=== PATIENT | female | born 1930 | race Caucasian/White ===

== ENCOUNTER 2016-10-10 15:24 | Emergency (ER) | payer MEDICARE, OTHER ==
[~2016-10-10] VITALS: Ht 157.5 cm; Wt 59.0 kg
[2016-10-10] MEDS ORDERED: ASPI81CH PO (15:38)
[2016-10-10] MEDS ORDERED: ATOR40TA (15:38)
[2016-10-10] MEDS ORDERED: NITR0.4S14 SL (15:39)
[2016-10-10] MEDS ORDERED: METO50TA2 (15:39)
[2016-10-10] MEDS ORDERED: TYLE325C PO (16:37)
[2016-10-10 16:44] VITALS: BP 161/72
[2016-10-10] MEDS ORDERED: ACETAMINOPHEN 325 MG TAB PO ONE (16:45)
--- NOTE | 2016-10-11 06:27 | REP ---
BILATERAL KNEES: HISTORY: Injury. LEFT KNEE, FIVE VIEWS: There is no acute fracture or dislocation. There is narrowing of the joint spaces. Chondrocalcinosis is present. IMPRESSION: Degenerative change as described above. RIGHT KNEE, FIVE VIEWS: There is no acute fracture or dislocation. There is narrowing of the joint spaces. An osteophyte is present on the patella. Chondrocalcinosis is present. IMPRESSION: Degenerative change as described above. Signed by Dexter Richard MD 10/11/2016 08:24 A
--- NOTE | 2016-10-11 06:28 | REP ---
BILATERAL TIBIA: HISTORY: Injury. RIGHT TIBIA, TWO VIEWS: There is no acute fracture or dislocation. There is narrowing of the knee joint space. IMPRESSION: Degenerative change as described above. LEFT TIBIA, TWO VIEWS: There is no acute fracture or dislocation. There is narrowing of the knee joint space. IMPRESSION: There is no acute fracture or dislocation. Signed by Dexter Richard MD 10/11/2016 08:26 A
== END 2016-10-10 16:57 | disposition home or self-care (01) ==
LOC: M ED 16:05
DX: M25.561 Pain in right knee (principal); M25.562 Pain in left knee; Z91.81 History of falling; I25.10 Atherosclerotic heart disease of native coronary artery without angina pectoris; I10 Essential (primary) hypertension; E78.9 Disorder of lipoprotein metabolism, unspecified; Z79.899 Other long term (current) drug therapy; Z79.82 Long term (current) use of aspirin

== ENCOUNTER 2016-10-25 18:11 | Inpatient (IN) | payer MEDICARE, OTHER ==
[~2016-10-25] VITALS: Ht 154.9 cm; Wt 64.1 kg
[~2016-10-25 18:11] MED LIST: ASPI81CH PO; ATOR40TA75 PO; METO50TA7 PO; NITR0.4S14 SL; TYLE325C PO
[2016-10-25] MEDS ORDERED: NS 500 ML IV ONE (19:00)
[2016-10-25] MEDS ORDERED: NITROGLYCERIN 2% OINT 1 GM *U/D* PKT TOP ONE (19:15)
[2016-10-25 19:21] LABS: BASO % 0.3 % (0.0-1.0); EOS % 0.2 % (0.0-3.0); LARGE UNSTAINED CELL # 0.2 K/mm3 (0.0-0.4); LARGE UNSTAINED CELL % 1.5 % (0.0-4.0); LYMPH # 2.2 K/mm3 (1.5-4.5); MEAN CORPUSCULAR HEMOGLOBIN 31.4 pg (27.0-33.0); MEAN CORPUSCULAR VOLUME 92.2 fl (80.0-96.0); MONO # 1.3 K/mm3 (0.0-0.8); MONO % 8.6 % (0.0-5.0); NEUTROPHILS # 11.7 K/mm3 (1.8-7.7); NEUTROPHILS % 75.4 % (36.0-66.0); PLATELET COUNT, AUTOMATED 191 k/mm3 (150-450); RED CELL DISTRIBUTION WIDTH 12.2 % (11.5-14.5); WHITE BLOOD COUNT 15.5 K/mm3 (4.0-10.0)
[2016-10-25 19:25] LABS: OSMOLALITY SERUM 288 MOSM/KG (280-301)
--- NOTE | 2016-10-25 19:30 | REPUSA ---
CT of the cervical spine Clinical history: fall. Technique: Multiple axial CT images were obtained through the cervical spine without administration o f contrast. Coronal and sagittal 3-D reconstructed images were also obtained. Comparison: None. Findings: The cervical vertebral bodies are in satisfactory positioning and alignment. No fractures or dislocat ions are demonstrated. The odontoid process is intact. There is moderate degenerative disc disease at C3/C4. Intervertebral disc spaces are otherwise well-maintained. There is no evidence of facet subl uxation. The neural foramen appear grossly patent. The cervical cranial junction is intact. The cervi neal spinal canal demonstrates normal caliber and contour without evidence of spinal stenosis. The sandhya rounding soft tissues are within normal limits. Impression: No acute fracture or traumatic injury. Moderate degenerative disc disease at C3/C4.
[2016-10-25 19:42] LABS: ALBUMIN 3.8 GM/DL (3.2-5.2); ALBUMIN/GLOBULIN RATIO 1.09 (1.00-1.93); ALKALINE PHOSPHATASE 72 U/L (45-117); ALT/SGPT 25 U/L (12-78); ANION GAP 10 MEQ/L (8-16); AST/SGOT 30 U/L (15-37); BILIRUBIN,DIRECT 0.2 MG/DL (0.0-0.2); BILIRUBIN,TOTAL 1.1 MG/DL (0.2-1.0); BLOOD UREA NITROGEN 17 MG/DL (7-18); CALCIUM LEVEL 9.2 MG/DL (8.8-10.2); CARBON DIOXIDE LEVEL 24 MEQ/L (21-32); CHLORIDE LEVEL 104 MEQ/L (98-107); CREATININE FOR GFR 0.96 MG/DL (0.55-1.02); GLOMERULAR FILTRATION RATE 58.8 (>32); GLUCOSE, FASTING 119 MG/DL (83-110); POTASSIUM SERUM 4.2 MEQ/L (3.5-5.1); SODIUM LEVEL 138 MEQ/L (136-145); TOTAL PROTEIN 7.3 GM/DL (6.4-8.2)
--- NOTE | 2016-10-25 19:47 | REP ---
CHEST: AP view of the chest is performed. There appears to be mild bibasilar fibro atelectatic change. There is mild cardiomegaly. There is calcification and tortuosity of the thoracic aorta. IMPRESSION: Chronic changes. No acute pulmonary disease. Signed by Constantino Heart MD 10/25/2016 08:24 P
[2016-10-25 20:38] LABS: METHADONE URINE NEGATIVE (NEGATIVE)
[2016-10-25 20:49] LABS: VENOUS BASE EXCESS -1.2 (-2.0-2.0); VENOUS O2 SATURATION 98.6 % (60.0-80.0); VENOUS PARTIAL PRESSURE CO2 31.8 mmHg (38.0-50.0); VENOUS PARTIAL PRESSURE O2 112.7 mmHg (30.0-50.0); VENOUS STANDARD HCO3 23.5 MEQ/L; VENOUS TOTAL CO2 22.8 MEQ/L (24.0-28.0)
[2016-10-25] MEDS ORDERED: NS 1,000 ML IV ONE (21:00)
[2016-10-25] MEDS ORDERED: PIPERACILLIN/TAZOBACTAM SOD 3.375 GM in D5W MINI-BAG PLUS 50 ML IV ONE (21:00)
[2016-10-25] MEDS ORDERED: ONDANSETRON 4MG/2ML VIAL (J2405) IV ONE (21:00)
[2016-10-25] MEDS ORDERED: ISOVUE-370 76% 100ML VIAL (Q9967) As Ordered ONE (21:27)
--- NOTE | 2016-10-25 22:10 | REPUSA ---
CT of the abdomen and pelvis with contrast Clinical statement: vomiting. Technique: Multiple axial CT images were obtained from the base of the lungs through the floor of the pelvis utilizing 5 mm axial slices after administration of nonionic intravenous contrast. Coronal an d sagittal reconstructions were also obtained. Comparison: None. Findings: Chest: The visualized lung bases demonstrate mild interstitial changes bilaterally. Abdomen: The liver, pancreas, kidneys, and adrenal glands are unremarkable. There is a large simple c yst in the anterior right kidney. There is a wedge shaped area of low attenuation within the spleen. The gallbladder significantly distended. The aorta demonstrates mild atherosclerotic calcifications, without evidence of aneurysm or dissection. There is no evidence of abdominal lymphadenopathy or asc ites. Pelvis: The bowel is unremarkable, with no obstructive or inflammatory changes. The urinary bladder i s catheterized, but within normal limits. The other pelvic structures appear grossly intact. There i s no evidence of pelvic lymphadenopathy or ascites. Bones: There are no suspicious osseous abnormalities seen. Moderate multilevel degenerative disc dise ase is noted throughout the lumbar spine. Impression: 1. No obstructive or inflammatory bowel changes. 2. Mild interstitial changes in the lung bases bilaterally. 3. Large simple right renal cyst. 4. Distended gallbladder. 5. Moderate atherosclerosis of the abdominal aorta without evidence of aneurysm or dissection. 6. Moderate spondylosis of the lumbar spine.
[2016-10-25 23:07] LABS: ABG BASE EXCESS -4.1 (-2.0-2.0); ABG PARTIAL PRESSURE CO2 33.8 mmHg (35.0-45.0); ABG PARTIAL PRESSURE O2 73.7 mmHg (75.0-100.0); ABG TOTAL CO2 21.1 MEQ/L (23.0-31.0); ABG pH (ARTERIAL) 7.391 UNITS (7.350-7.450)
[2016-10-25] MEDS: NS 1,000 ML IV SCH (23:15)
[2016-10-25] MEDS ORDERED: ASPI1TAB15 PO (23:40)
[2016-10-25] MEDS ORDERED: TYLE325T5 PO (23:40)
[2016-10-26] VITALS (15 sets, daily range): BP systolic 111–185; BP diastolic 52–74
--- NOTE | 2016-10-26 01:30 | REPUSA ---
CLINICAL HISTORY: Change in pupils. TECHNIQUE: Multiple axial CT images were obtained through the brain without IV contrast material. COMMENTS: There is normal configuration of sella turcica. There are no intra or extra-axial collections. There is no mass effect or midline shift. There is no evidence of hematoma formation. No hydrocephalus is p resent. The ventricles are symmetrical. No abnormal calcifications are present. There is diffuse age-appropriate cerebellar and cerebral atrophy with proportionally dilated ventricl es and cortical sulci. There are bilateral periventricular and subcortical white matter hypolucencies compatible with mild c hronic microvascular disease. Otherwise, no significant focal abnormalities are seen either in the posterior fossa or supratentoria l compartment. IMPRESSION: 1. Age-appropriate cerebellar and cerebral atrophy. 2. Mild chronic microvascular disease. 3. No evidence of acute intracranial pathology. No change is noted since the prior exam on 10/25/2016. Thank you for your kind referral of this patient.
[2016-10-26] MEDS: CHLORHEXIDINE GLUCONATE 0.12 % 15ML UDC (PERIDEX ORAL RINSE) MT SCH ×2 (03:39→09:00)
[2016-10-26] MEDS ORDERED: hydrALAZINE INJ 20 MG/ML VIAL IV ONE (04:15)
[2016-10-26 05:08] LABS: MEAN CORPUSCULAR HEMOGLOBIN 31.9 pg (27.0-33.0); MEAN CORPUSCULAR HGB CONC 34.2 g/dl (32.0-36.5); MEAN CORPUSCULAR VOLUME 93.3 fl (80.0-96.0); RED CELL DISTRIBUTION WIDTH 12.6 % (11.5-14.5)
[2016-10-26 05:30] LABS: ALBUMIN/GLOBULIN RATIO 0.86 (1.00-1.93); ALKALINE PHOSPHATASE 59 U/L (45-117); ALT/SGPT 23 U/L (12-78); ANION GAP 7 MEQ/L (8-16); AST/SGOT 23 U/L (15-37); BILIRUBIN,TOTAL 1.1 MG/DL (0.2-1.0); BLOOD UREA NITROGEN 15 MG/DL (7-18); CALCIUM LEVEL 7.7 MG/DL (8.8-10.2); CARBON DIOXIDE LEVEL 23 MEQ/L (21-32); CHLORIDE LEVEL 109 MEQ/L (98-107); CREATININE FOR GFR 0.91 MG/DL (0.55-1.02); GLOMERULAR FILTRATION RATE > 60.0 (>32); GLUCOSE, FASTING 146 MG/DL (83-110); POTASSIUM SERUM 4.2 MEQ/L (3.5-5.1); SODIUM LEVEL 139 MEQ/L (136-145); TOTAL PROTEIN 6.5 GM/DL (6.4-8.2)
--- NOTE | 2016-10-26 08:33 | REP ---
Portable chest, single AP view, the patient semi upright, 07:05 a.m., 10/26/2016. Comparison is 10/25/2016. There is increased coarsening of the interstitial markings particularly in the upper lobes compatible with pulmonary vascular engorgement. No aline pulmonary edema. The left costophrenic angle is mildly effaced as an interval change suggestive of a small left pleural effusion. Cardiac size is normal. The maria fernanda, mediastinum, and bony thorax are unchanged. Signed by Constantino Hooper MD 10/26/2016 08:25 A
[2016-10-26] MEDS ORDERED: ASPIRIN 300 MG SUPP PR SCH (09:00)
[2016-10-26] MEDS ORDERED: ENOXAPARIN 40 MG/0.4 ML SYRINGE (J1650) SC SCH (09:00)
[2016-10-26] MEDS ORDERED: PANTOPRAZOLE 40MG INJ (PROTONIX) (C9113) IV SCH (09:00)
--- NOTE | 2016-10-26 09:23 | ECGEPIP ---
Stationary ECG Study [facility] - ED Test Date: 2016-10-25 Pat Name: PETR MARIE Department: Room: [place] [address] Gender: F Dietary Services Director: MathewB: [id number] Requested By: Hans New Order Number: [id number] Reading MD: Michelle Metz Measurements Intervals Smith Rate: 70 P: 52 PA: 178 QRS: -38 QRSD: 98 T: 27 QT: 401 QTc: 433 Interpretive Statements SINUS RHYTHM MARKED LEFT AXIS DEVIATION LEFT VENTRICULAR HYPERTROPHY AND ST-T CHANGE POSSIBLE INFERIOR INFARCT BASELINE ARTIFACT LIMITS INTERPRETATION NO PRIOR FOR COMPARISON Electronically Signed On 10-26-2016 9:22:56 EDT by Michelle Metz
--- NOTE | 2016-10-26 11:29 | IPNPDOC ---
Subjective Date Seen The patient was seen on 10/26/16. Subjective Chief Complaint/HPI The patient is a 86-year-old female admitted with a reason for visit of Altered Mental Status. Events since last encounter Patient remains unresponsive. Nursing reports that she was having Benny- Ortiz respirations this morning. Improved somewhat with elevation of her head. Constitutional: Denies: Chills, Fever Pulmonary: Denies: Dyspnea, Cough Cardiovascular: Denies: Chest Pain Gastrointestinal: Denies: Vomiting Objective Physical Examination General Exam: Positive: Other (unresponsive. Snoring resp at times. ) Eye Exam: Positive: PERRLA, Other Eye Symptoms (BL pupils dialted) Chest Exam: Positive: Clear to auscultation, Normal air movement Heart Exam: Positive: Rate Normal, Regular Rhythm Abdomen Exam: Positive: Normal bowel sounds, Soft, Negative: Tenderness Extremity Exam: Negative: Edema Neuro Exam: Positive: Other (Posturing with sternal rub, Babinski uppgoing BL. ) Assessment /Plan Problems (1) Metabolic encephalopathy Status: Acute Problem Text: Likely had a large CVA. Unable to obtain MRI due to unstable respiratory status especially when laying flat. CT brain without bleed or mass Family and HCP at bedside. I discussed the findings on her neurologic exam and concern that her status is not likely to improve. We will continue to discuss and consider FLUXER. She has a living will that makes it very clear that she would not want aggressive management. Most likely will d/c IVF and make FLUXER if no improvement in her neurologic status (2) Altered mental status Problem Text: see above Plan/VTE VTE Prophylaxis Ordered?: Yes (start Lovenox today if not FLUXER. ) Plan/Urinary Catheter Reason for insertion/continuin: Critical Pt monitoring VS, I&O, 24H, Fishbone Vital Signs/I&O Vital Signs Date Time Temp Pulse Resp B/P (MAP) Pulse Ox O2 Delivery O2 Flow Rate FiO2 10/26/16 08:00 100.8 80 20 140/63 (88) 96 Nasal Cannula 3.0 I&O- Last 24 Hours up to 6 AM 10/26/16 06:00 Intake Total 1900 ml Output Total 725 ml Balance 1175 ml Laboratory Data 24H LABS Laboratory Tests 2 10/25/16 18:29: White Blood Count 15.5H, Red Blood Count 4.61, Hemoglobin 14.5, Hematocrit 42.5 , Mean Corpuscular Volume 92.2, Mean Corpuscular Hemoglobin 31.4, Mean Corpuscular Hemoglobin Concent 34.0, Red Cell Distribution Width 12.2, Platelet Count 191, Neutrophils (%) (Auto) 75.4H, Lymphocytes (%) (Auto) 14.0L, Monocytes (%) (Auto) 8.6H, Eosinophils (%) (Auto) 0.2, Basophils (%) (Auto) 0.3 , Neutrophils # (Auto) 11.7H, Lymphocytes # (Auto) 2.2, Monocytes # (Auto) 1.3H , Eosinophils # (Auto) 0.0, Basophils # (Auto) 0.0, Large Unclassified Cells % 1.5, Large Unclassified Cells # 0.2, Anion Gap 10, Glomerular Filtration Rate 58.8, Osmolality 288, Lactic Acid Level 2.9*H, Calcium Level 9.2, Aspartate Amino Transf (AST/SGOT) 30, Alanine Aminotransferase (ALT/SGPT) 25, Alkaline Phosphatase 72, Total Bilirubin 1.1H, Direct Bilirubin 0.2, Ammonia 13, Total Creatine Kinase 133, Creatine Kinase MB 3.4, Creatine Kinase MB Relative Index 2.55, Troponin I 0.22H, Total Protein 7.3, Albumin 3.8, Albumin/Globulin Ratio 1.09, Thyroid Stimulating Hormone (TSH) 0.870, Salicylates Level < 1.7L, Acetaminophen Level < 2.0L, Ethyl Alcohol Level < 0.003 10/25/16 19:37: Bedside Glucose (Misc Panel) 125H 10/25/16 20:03: Urine Appearance CLEAR, Urine Color YELLOW, Urine pH 6.0, Urine Specific Humphrey 1.017, Urine Protein NEGATIVE, Urine Glucose (UA) NEGATIVE, Urine Ketones 1+H, Urine Urobilinogen 0.2, Urine Bilirubin NEGATIVE, Urine Leukocyte Esterase NEGATIVE, Urine Blood NEGATIVE, Urine Nitrite NEGATIVE, Urine WBC (Auto ) 1, Urine RBC (Auto) 1, Urine Hyaline Casts (Auto) 0, Urine Bacteria (Auto) NEGATIVE, Urine Squamous Epithelial Cells 0, Urine Mucus (Auto) SMALL, Urine Sperm (Auto) , Urine Amphetamines Screen NEGATIVE, Urine Benzodiazepines Screen NEGATIVE, Urine Opiates Screen NEGATIVE, Urine Methadone Screen NEGATIVE, Urine Barbiturates Screen NEGATIVE, Urine Phencyclidine Screen NEGATIVE, Urine Cocaine Metabolite Screen NEGATIVE, Urine Cannabinoids Screen NEGATIVE 6/19/17 20:33: Blood Gas Bicarbonate Standard 23.5, Venous Blood pH 7.454H, Venous Blood Partial Pressure CO2 31.8L, Venous Blood Partial Pressure O2 112.7H, Venous Blood Total Carbon Dioxide 22.8L, Venous Blood HCO3 21.8L, Venous Blood Oxygen Saturation 98.6H, Venous Blood Base Excess -1.2 10/25/16 23:01: Blood Gas Bicarbonate Standard 21.0L, Arterial Blood pH 7.391, Arterial Blood Partial Pressure CO2 33.8L, Arterial Blood Partial Pressure O2 73.7L, Arterial Blood Total CO2 21.1L, Arterial Blood HCO3 20.0L, Arterial Blood Base Excess - 4.1L, Arterial Blood Oxygen Saturation 93.9L 10/26/16 01:09: Lactic Acid Level 1.3, Total Creatine Kinase 105, Creatine Kinase MB 3.1, Creatine Kinase MB Relative Index 2.95, Troponin I 0.19H 10/26/16 04:54: Anion Gap 7L, Glomerular Filtration Rate > 60.0, Blood Urea Nitrogen 15, Creatinine 0.91, Sodium Level 139, Potassium Level 4.2, Chloride Level 109H, Carbon Dioxide Level 23, Calcium Level 7.7#L, Aspartate Amino Transf (AST/SGOT) 23, Alanine Aminotransferase (ALT/SGPT) 23, Alkaline Phosphatase 59, Total Bilirubin 1.1H, Total Protein 6.5, Albumin 3.0#L, Albumin/Globulin Ratio 0.86L CBC/BMP Laboratory Tests 10/25/16 18:29 Red Blood Count 4.61, Mean Corpuscular Volume 92.2, Mean Corpuscular Hemoglobin 31.4, Mean Corpuscular Hemoglobin Concent 34.0, Red Cell Distribution Width 12.2 , Neutrophils (%) (Auto) 75.4 H, Lymphocytes (%) (Auto) 14.0 L, Monocytes (%) ( Auto) 8.6 H, Eosinophils (%) (Auto) 0.2, Basophils (%) (Auto) 0.3, Neutrophils # (Auto) 11.7 H, Lymphocytes # (Auto) 2.2, Monocytes # (Auto) 1.3 H, Eosinophils # (Auto) 0.0, Basophils # (Auto) 0.0 10/26/16 04:54 Red Blood Count 4.02, Mean Corpuscular Volume 93.3, Mean Corpuscular Hemoglobin 31.9, Mean Corpuscular Hemoglobin Concent 34.2, Red Cell Distribution Width 12.6 , Calcium Level 7.7 #L, Aspartate Amino Transf (AST/SGOT) 23, Alanine Aminotransferase (ALT/SGPT) 23, Alkaline Phosphatase 59, Total Bilirubin 1.1 H, Total Protein 6.5, Albumin 3.0 #L Microbiology Microbiology 10/25/16 Blood Culture, Received Pending 10/25/16 Blood Culture, Received Pending 10/25/16 Urine Culture, Received Pending EFREM SOLOMON PA-C Oct 26, 2016 11:29
--- NOTE | 2016-10-26 12:45 | IPN ---
DATE: 10/26/2016 I met with Albertina's family, both healthcare proxies, two sons, other family members. She was admitted with presumptive stroke. She is unresponsive to verbal or physical stimulation. She is showing decorticate posturing and Benny-Ortiz respirations. Imaging study today is just a CT of the brain that shows no bleed. Physical exam was performed and is consistent with as documented by Karyn Mayberry today. IMPRESSION: Altered mental status/encephalopathy. Suspect large stroke. I suspect she has increasing intracranial pressure. She is DO NOT RESUSCITATE (DNR) status. I would like to complete an MRI scan. She has Benny-Ortiz respirations. Family would not want her intubated should she have respiratory arrest. I think that the information that could be obtained from MRI scan would be very beneficial prognostically, as well as possibly therapeutic - if she does show increase in intracranial pressure we might want to be discussing Decadron, hypertonic saline, etc. Also discussed possibly neurology consult, but will wait for the MRI scan first. Patient's family are reaffirmed DNR status. At this point, it think it is too early to be discussing comfort measures. We do not have a firm diagnosis, and we are just working off a clinical suspicion. She does have a leukocytosis, but I do not see any evidence of infection anywhere. She is on Zosyn. I am not sure why. Urine is clear, and chest x-ray shows only chronic changes, so I am discontinuing the Zosyn.
[2016-10-26] MEDS: NS 1,000 ML IV SCH (13:51)
--- NOTE | 2016-10-26 13:57 | REPUSA ---
CT of the head Clinical history: Altered mental status. Protocol: Multiple axial CT images obtained with 5 mm slice thickness were obtained through the head without administration of contrast. Comparison: None. Findings: The ventricles and sulci are symmetric but prominent in size bilaterally. There are periven tricular areas of low attenuation throughout the deep white matter. There is no evidence of acute hem orrhage or infarct. There is no midline shift, mass effect, or extra-axial fluid collection. The osse ous structures are unremarkable. The visualized paranasal sinuses and mastoid air cells are clear. Impression: No acute hemorrhage or infarct. Findings are consistent with age-related atrophy and coordinator of genetic services janae small vessel ischemic disease.
--- NOTE | 2016-10-26 15:25 | REP ---
HISTORY: Possible stroke-like symptoms. COMPARISON BRAIN MRI: None. Seen on [facility] imaging there is bilateral occipital lobe hypersignal and bilateral posterior-inferior temporal lobe signal hyperintensity with multifocal signal hyperintensity seen bilaterally in the cerebellum continuing upward in the medullary region and cerebellar peduncular region including a small portion of the ismael. These areas are of abnormally low signal on ADC mapping. Abnormal T2 hypersignal is seen in the thalamic region bilaterally, left greater than right, which is also of abnormal low signal on ADC mapping. The ventricles and sulci are within normal limits for the patient's age. There are no extra-axial fluid collections. There is no mass or mass effect. Scattered deep white matter signal hyperintensities are seen on T2-weighted imaging and FLAIR imaging. There are numerous prominent Virchow-Tejinder spaces. There is no evidence of an acute intracranial hemorrhage. IMPRESSION: Large nonhemorrhagic CVA as described above. Signed by Damien Cruz DO 10/26/2016 04:02 P
[2016-10-26] MEDS ORDERED: MORPHINE 10MG/0.5ML ORAL CONCENTRATE SOLUTION U/D SL PRN (16:15)
[2016-10-26] MEDS ORDERED: LORazepam 1 MG TAB PO PRN (16:15)
--- NOTE | 2016-10-26 16:19 | IPN ---
DATE: 10/26/2016 Albertina's MRI scan unfortunately showed massive bilateral posterior circulation stroke with involvement of the occipital lobes, cerebellum, ismael and medulla. It is nonhemorrhagic nor is there is any edema. Based upon the finding of massive bilateral stroke without associated edema or bleeding, both of which would have the potential to improve with aggressive therapy, family has appropriately elected to opt for comfort measures. She already has a DO NOT RESUSCITATE (DNR). Prognosis is grim and should she survive this, she would require total care. We will put in orders for comfort measures. I briefly discussed the option of hospice which they are not interested in.
--- NOTE | 2016-10-26 21:31 | HPE ---
DATE OF ADMISSION: 10/26/2016 CHIEF COMPLAINT: Unresponsive. PRIMARY CARE PROVIDER: Ramon Mayberry MD This is an 86-year-old female who the previous night had dinner with her family. She went home as she is self-sufficient and lives alone. The next day her family had tried to call her several times with no answer and went over to check on her. She was found on the floor by her grandson. She was having garbled speech. She was brought to the emergency room. Upon arrival in the emergency room, blood pressure was 230/98, pulse 89, respirations 20, temperature was 98.7, oxygen saturation on room air was 98%. Stat CT was done which showed ventricles and sulci symmetrical but prominent in size bilaterally, no evidence of acute hemorrhage or infarct, findings consistent with age related atrophy and chronic small vessel ischemic disease. Chest xray showed chronic changes, no acute pulmonary disease. Cervical (C) spine showed no acute fracture or traumatic injury, moderate degenerative disc disease at C3-C4. CT of the abdomen showed no obstructive or inflammatory bowel changes, mild interstitial changes in the lung bases, large simple right renal cyst, distended gallbladder, moderate atherosclerosis of the abdominal aorta without evidence of aneurysm or dissection, moderate spondylosis of the lumbar spine. LABORATORY STUDIES: White count was 15.5, hemoglobin 14.5, hematocrit 42.5, platelets were 191. Lactic acid was elevated at 2.9. Troponin was 0.19. CPK was normal at 105. Ammonia was normal at 13. AST was 23, ALT was 23, BUN was 7, creatinine was 15, glucose was 126. Toxicologies were negative. Urinalysis showed 1+ ketones, otherwise essentially negative. Blood gas showed a normal pH of 7.39, pO2 of 73.7, HCO3 20, total CO2 21, oxygen saturation 93%. Assessment was done. Patient's left pupil was noted to be dilated, which was a new finding from her prior arrival to the emergency room. She was unresponsive, obtunded, she did not speak. She did not move any extremity other than to painful stimuli. She had a slight gag reflex. Discussed with the emergency room physician Dr. Alas. The patient's oxygen saturation was maintaining but she would appear to slightly Benny-Ortiz at times. It was felt that there was a possibility that there would be respiratory difficulties in the MRI if she was not intubated. Discussed with the family. They did not wish to make her intubated at this time. They did choose to make her DO NOT RESUSCITATE, the healthcare proxy was present. Discussed with family that suspicion was high for a CVA. We monitored patient's status. Emergency room (ER) physician recommended a repeat head CT which was done. Patient had an elevated white count. In the emergency room, she had received one dose of Zosyn. Blood cultures were drawn. Urine cultures sent. Sputum culture will be ordered. Patient will be admitted to the intensive care unit (ICU) unit for transient ischemic attack (TIA), rule out CVA. Monitor vitals. General IV hydration. Patient will be made nothing by mouth. Patient will be admitted to the ICU unit. ALLERGIES: RISEDRONATE causes gastrointestinal (GI) upset. SOCIAL HISTORY: She is , she lives alone. Ethyl alcohol (EtOH): None. Smokes: None. Recreational drug use: None. PAST MEDICAL HISTORY: 1. Hyperlipidemia. 2. Hypertension. PAST SURGICAL HISTORY: Per the family: Hysterectomy. REVIEW OF SYSTEMS: Was unable to be completed as the patient was completely obtunded and nonverbal. PHYSICAL EXAMINATION: 86-year-old female. Height 61 inches, weight 64.1 kg, body mass index (BMI) 26.7. PUPILS: Left is greater than right, nonreactive. PHARYNX, TONGUE, GUMS: [place] and moist. Tongue is midline. Gag reflex present. NECK: Supple without lymphadenopathy, no thyromegaly, no goiter. Carotids are 2+ without bruit. CHEST: Has decreased breath sounds in the base. No wheeze or retraction. HEART: Regular. ABDOMEN: Benign. Bowel sounds positive. GENITOURINARY/RECTAL: Not done. EXTREMITIES: Show positive Babinski. No cyanosis, clubbing, or edema. Peripheral pulse equal and palpable bilaterally. IMPRESSION/PLAN: 1. Unresponsiveness, probable CVA, metabolic encephalopathy. Unable to obtain MRI at this time. Patient's respiratory status is unstable. Will repeat CT of the brain. 2. History of hypertension. Monitor blood pressure, treat as needed. 3. Nothing by mouth. 4. Patient will be admitted to the intensive care unit (ICU).
--- NOTE | 2016-10-27 09:59 | IPNPDOC ---
Subjective Date Seen The patient was seen on 10/27/16. Subjective Chief Complaint/HPI The patient is a 86-year-old female admitted with a reason for visit of Altered Mental Status. Events since last encounter Son at bedside. Breathing comfortably. Has required some suctioning at times, but overall seems comfortable. Constitutional: Reports: Other (unresponsive. Breathing comfortably) Objective Physical Examination General Exam: Positive: Other (breathing comfortably, unresponsive) Chest Exam: Positive: Clear to auscultation, Normal air movement Heart Exam: Positive: Rate Normal, Regular Rhythm Abdomen Exam: Negative: Tenderness Extremity Exam: Negative: Edema Assessment /Plan Problems (1) Acute cerebrovascular accident (CVA) Status: Acute Problem Text: MRI confirmed large nonhemorrhagic CVA. Remains unresponsive. I soke with Meenakshi (HCP) and son who are happy with the HEADING REPAIRER care she is getting here, but are willing to consider hospice house. PFS aware and will discuss further with family (2) Metabolic encephalopathy Status: Acute Plan/VTE VTE Prophylaxis Ordered?: No (start Lovenox today if not HEADING REPAIRER. ) VTE Exclusion Mechanical Proph: Other (HEADING REPAIRER) Plan/Urinary Catheter Reason for insertion/continuin: Critical Pt monitoring VS, I&O, 24H, Fishbone Vital Signs/I&O Vital Signs Date Time Temp Pulse Resp B/P (MAP) Pulse Ox O2 Delivery O2 Flow Rate FiO2 10/26/16 20:30 Nasal Cannula 2.0 10/26/16 16:00 100.2 59 18 139/63 (88) 97 I&O- Last 24 Hours up to 6 AM 10/27/16 06:00 Intake Total 1150 ml Output Total 735 ml Balance 415 ml Laboratory Data Microbiology Microbiology 10/25/16 Blood Culture - Preliminary, Resulted No growth after 24 hours . All specim... 10/25/16 Blood Culture - Preliminary, Resulted No growth after 24 hours . All specim... 10/25/16 Urine Culture, Received Pending EFREM SOLOMON PA-C Oct 27, 2016 09:59
[2016-10-27] MEDS: ATROPINE SULFATE 1% OP SOLN 2 ML BTL SL PRN (20:45)
[2016-10-28] MEDS: SCOPOLAMINE 1.5 MG TRANSDERMAL TOP SCH (08:21)
--- NOTE | 2016-10-28 08:52 | IPNPDOC ---
Subjective Date Seen The patient was seen on 10/28/16. Subjective Chief Complaint/HPI The patient is a 86-year-old female admitted with a reason for visit of Altered Mental Status. Events since last encounter Nurse reports suctioning required for secretions from time to time, otherwise appears comfortable. Constitutional: Denies: Chills, Fever Pulmonary: Denies: Dyspnea Other systems No signs of pain Objective Physical Examination General Exam: Positive: Other (breathing comfortably, unresponsive) Chest Exam: Positive: Clear to auscultation, Normal air movement Heart Exam: Positive: Rate Normal, Regular Rhythm Abdomen Exam: Negative: Tenderness Extremity Exam: Negative: Edema Assessment /Plan Problems (1) Acute cerebrovascular accident (CVA) Status: Acute Problem Text: MRI confirmed large nonhemorrhagic CVA. Remains unresponsive. 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 Meeting with hospice planned for today with family to consider hospice house Add scopolamine patch (2) Metabolic encephalopathy Status: Acute Plan/VTE VTE Prophylaxis Ordered?: No (start Lovenox today if not SUPERVISOR SHOP. ) VTE Exclusion Mechanical Proph: Other (SUPERVISOR SHOP) Plan/Urinary Catheter Reason for insertion/continuin: Critical Pt monitoring VS, I&O, 24H, Fishbone Vital Signs/I&O Vital Signs Date Time Temp Pulse Resp B/P (MAP) Pulse Ox O2 Delivery O2 Flow Rate FiO2 10/27/16 20:30 Nasal Cannula 2.0 10/26/16 16:00 100.2 59 18 139/63 (88) 97 I&O- Last 24 Hours up to 6 AM 10/28/16 06:00 Intake Total 0 ml Output Total 550 ml Balance -550 ml Laboratory Data Microbiology Microbiology 10/25/16 Blood Culture - Preliminary, Resulted No Growth after 48 hours. All Specime... 10/25/16 Blood Culture - Preliminary, Resulted No Growth after 48 hours. All Specime... 10/25/16 Urine Culture - Final, Complete EFREM SOLOMON PA-C Oct 28, 2016 08:52
[2016-10-28] MEDS: ATROPINE SULFATE 1% OP SOLN 2 ML BTL SL PRN ×2 (10:56→16:40)
[2016-10-28] MEDS: MORPHINE SULFATE ORAL SOLN 10 MG/5 ML UD SL PRN (16:39)
[2016-10-29] MEDS: MORPHINE SULFATE ORAL SOLN 10 MG/5 ML UD SL PRN (04:45)
[2016-10-30] MEDS: MORPHINE 2 MG/ML 1ML SYRINGE IV PRN ×2 (10:27→16:24)
[2016-10-30] MEDS: ATROPINE SULFATE 1% OP SOLN 2 ML BTL SL PRN ×2 (10:27→16:24)
--- NOTE | 2016-10-31 00:07 | IPNPDOC ---
Subjective Date Seen The patient was seen on 10/30/16. Subjective Chief Complaint/HPI The patient is a 86-year-old female admitted with a reason for visit of CVA Events since last encounter Nursing requested IV route for morphine, as oral morphine removed while suctioning. Patient with terminal secretions. Resting comfortably when seen ( after administration of morphine.) Family at bedside. They feel that her symptoms are controlled. I told them that nursing can reach me at any time if she needs anything to help with discomfort or anxiety. General: Reports: ROS Unobtainable Objective Physical Examination General Exam: Positive: Other (breathing comfortably, unresponsive) Assessment /Plan Problems (1) Acute cerebrovascular accident (CVA) Status: Acute Problem Text: 10/30 -- Family prefers patient to remain here rather than transfer to hospice. Patient is unresponsive, and I expect she may pass soon. 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 MRI confirmed large nonhemorrhagic CVA. Remains unresponsive. 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 Meeting with hospice planned for today with family to consider hospice house Add scopolamine patch (2) Metabolic encephalopathy Status: Acute Plan/VTE VTE Prophylaxis Ordered?: No (start Lovenox today if not CALENDER ROLL OPERATOR. ) VTE Exclusion Mechanical Proph: Other (CALENDER ROLL OPERATOR) Plan/Urinary Catheter Reason for insertion/continuin: Critical Pt monitoring VS, I&O, 24H, Fishbone Vital Signs/I&O Vital Signs Date Time Temp Pulse Resp B/P (MAP) Pulse Ox O2 Delivery O2 Flow Rate FiO2 10/30/16 21:30 Room Air 10/29/16 21:00 2.0 10/26/16 16:00 100.2 59 18 139/63 (88) 97 I&O- Last 24 Hours up to 6 AM 10/30/16 06:00 Intake Total 0 ml Output Total 300 ml Balance -300 ml Laboratory Data Microbiology Microbiology 10/25/16 Blood Culture - Final, Complete NO GROWTH AFTER 5 DAYS 10/25/16 Blood Culture - Final, Complete NO GROWTH AFTER 5 DAYS 10/25/16 Urine Culture - Final, Complete CRAIG PATEL DO Oct 31, 2016 00:07
[2016-10-31] MEDS: SCOPOLAMINE 1.5 MG TRANSDERMAL TOP SCH (09:54)
[2016-10-31] MEDS: ATROPINE SULFATE 1% OP SOLN 2 ML BTL SL PRN ×2 (09:54→14:08)
[2016-10-31] MEDS: MORPHINE 10MG/0.5ML ORAL CONCENTRATE SOLUTION U/D SL PRN ×3 (14:08→21:44)
--- NOTE | 2016-10-31 14:40 | IPNPDOC ---
Subjective Date Seen The patient was seen on 10/31/16. Subjective Chief Complaint/HPI The patient is a 86-year-old female admitted with a reason for visit of Altered Mental Status. 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 Family is now amenable to patient's discharge to hospice as of Tuesday, if hospice is able to take her. They feel that her pain control has been adequate. General: Reports: ROS Unobtainable Objective Physical Examination General Exam: Positive: Other (breathing comfortably, unresponsive) Assessment /Plan Problems (1) Acute cerebrovascular accident (CVA) Status: Acute Problem Text: 10/31 -- plan now do DC to hospice 10/30 -- Family prefers patient to remain here rather than transfer to hospice. Patient is unresponsive, and I expect she may pass soon. 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 MRI confirmed large nonhemorrhagic CVA. Remains unresponsive. 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 Meeting with hospice planned for today with family to consider hospice house Add scopolamine patch (2) Metabolic encephalopathy Status: Acute (3) Comfort measures only status Problem Text: 10/31 -- plan DC to hospice when hospice care is available. The PO morphine that was ordered for her was not concentrated, so I switched her to Roxanol. Symptoms adequately controlled. Continue comfort measures. Plan/VTE VTE Prophylaxis Ordered?: No (start Lovenox today if not AQUACULTURE FARMER. ) VTE Exclusion Mechanical Proph: Other (AQUACULTURE FARMER) Plan/Urinary Catheter Reason for insertion/continuin: Critical Pt monitoring VS, I&O, 24H, Fishbone Vital Signs/I&O Vital Signs Date Time Temp Pulse Resp B/P (MAP) Pulse Ox O2 Delivery O2 Flow Rate FiO2 10/30/16 21:30 Room Air 10/29/16 21:00 2.0 10/26/16 16:00 100.2 59 18 139/63 (88) 97 I&O- Last 24 Hours up to 6 AM 10/31/16 06:00 Intake Total 0 ml Output Total 700 ml Balance -700 ml Laboratory Data Microbiology Microbiology 10/25/16 Blood Culture - Final, Complete NO GROWTH AFTER 5 DAYS 10/25/16 Blood Culture - Final, Complete NO GROWTH AFTER 5 DAYS 10/25/16 Urine Culture - Final, Complete CRAIG PATEL DO Oct 31, 2016 14:39
[2016-11-01] MEDS: MORPHINE 10MG/0.5ML ORAL CONCENTRATE SOLUTION U/D SL PRN ×8 (02:33→22:08)
[2016-11-01] MEDS: ATROPINE SULFATE 1% OP SOLN 2 ML BTL SL PRN (04:34)
--- NOTE | 2016-11-01 08:56 | IPNPDOC ---
Subjective Date Seen The patient was seen on 11/01/16. Subjective Chief Complaint/HPI The patient is a 86-year-old female admitted with a reason for visit of Altered Mental Status. Events since last encounter Dgt in law/HCP at bedside, no new concerns. She has decided that they would like to remain in hopsital. Recognizes that she doesn't have long, doesn't want to have her moved, family is torn between in home vs in Hospice, and she thinks moving her isn't the best option. She feels she is comfortable at this time. 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 Cont current care. 10/31 -- plan DC to hospice when hospice care is available. The PO morphine that was ordered for her was not concentrated, so I switched her to Roxanol. Symptoms adequately controlled. Continue comfort measures. (2) Acute cerebrovascular accident (CVA) Status: Acute Problem Text: 10/31 -- plan now do DC to hospice 10/30 -- Family prefers patient to remain here rather than transfer to hospice. Patient is unresponsive, and I expect she may pass soon. 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 MRI confirmed large nonhemorrhagic CVA. Remains unresponsive. 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 Meeting with hospice planned for today with family to consider hospice house Add scopolamine patch (3) Metabolic encephalopathy Status: Acute Plan/VTE VTE Prophylaxis Ordered?: No (start Lovenox today if not FINISHING MACHINE OPERATOR. ) VTE Exclusion Mechanical Proph: Other (FINISHING MACHINE OPERATOR) Plan/Urinary Catheter Reason for insertion/continuin: Critical Pt monitoring VS, I&O, 24H, Fishbone Vital Signs/I&O Vital Signs Date Time Temp Pulse Resp B/P (MAP) Pulse Ox O2 Delivery O2 Flow Rate FiO2 10/31/16 22:55 Room Air 10/29/16 21:00 2.0 10/26/16 16:00 100.2 59 18 139/63 (88) 97 I&O- Last 24 Hours up to 6 AM 11/01/16 06:00 Intake Total 0 ml Output Total 725 ml Balance -725 ml Laboratory Data Microbiology Microbiology 10/25/16 Blood Culture - Final, Complete NO GROWTH AFTER 5 DAYS 10/25/16 Blood Culture - Final, Complete NO GROWTH AFTER 5 DAYS 10/25/16 Urine Culture - Final, Complete ABIMBOLA DAVIS PA-C Nov 01, 2016 08:56
[2016-11-02] MEDS: MORPHINE 10MG/0.5ML ORAL CONCENTRATE SOLUTION U/D SL PRN ×3 (03:36→06:37)
--- NOTE | 2016-11-02 10:00 | IPNPDOC ---
Subjective Date Seen The patient was seen on 11/02/16. Subjective Chief Complaint/HPI The patient is a 86-year-old female admitted with a reason for visit of Altered Mental Status. Events since last encounter Dgt in law at bedside, no concerns. 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 Cont current care. 10/31 -- plan DC to hospice when hospice care is available. The PO morphine that was ordered for her was not concentrated, so I switched her to Roxanol. Symptoms adequately controlled. Continue comfort measures. (2) Acute cerebrovascular accident (CVA) Status: Acute Problem Text: 10/31 -- plan now do DC to hospice 10/30 -- Family prefers patient to remain here rather than transfer to hospice. Patient is unresponsive, and I expect she may pass soon. 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 MRI confirmed large nonhemorrhagic CVA. Remains unresponsive. 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 Meeting with hospice planned for today with family to consider hospice house Add scopolamine patch (3) Metabolic encephalopathy Status: Acute Plan/VTE VTE Prophylaxis Ordered?: No (start Lovenox today if not CARVING MACHINE OPERATOR. ) VTE Exclusion Mechanical Proph: Other (CARVING MACHINE OPERATOR) Plan/Urinary Catheter Reason for insertion/continuin: Critical Pt monitoring VS, I&O, 24H, Fishbone Vital Signs/I&O Vital Signs Date Time Temp Pulse Resp B/P (MAP) Pulse Ox O2 Delivery O2 Flow Rate FiO2 11/01/16 19:30 Room Air 10/29/16 21:00 2.0 I&O- Last 24 Hours up to 6 AM 11/02/16 06:00 Intake Total 0 ml Output Total 550 ml Balance -550 ml Laboratory Data Microbiology Microbiology 10/25/16 Blood Culture - Final, Complete NO GROWTH AFTER 5 DAYS 10/25/16 Blood Culture - Final, Complete NO GROWTH AFTER 5 DAYS 10/25/16 Urine Culture - Final, Complete ABIMBOLA DAVIS PA-C Nov 02, 2016 09:59
[2016-11-03] MEDS: ATROPINE SULFATE 1% OP SOLN 2 ML BTL SL PRN (08:32)
[2016-11-03] MEDS: MORPHINE 10MG/0.5ML ORAL CONCENTRATE SOLUTION U/D SL PRN ×2 (08:33→14:17)
[2016-11-03] MEDS: SCOPOLAMINE 1.5 MG TRANSDERMAL TOP SCH (08:33)
--- NOTE | 2016-11-03 10:23 | IPNPDOC ---
Subjective Date Seen The patient was seen on 11/03/16. Subjective Chief Complaint/HPI The patient is a 86-year-old female admitted with a reason for visit of Altered Mental Status. Events since last encounter Pt sleeping/unresponsive. 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 Family decided against home with hospice, per nursing. 11/01 - Plans to remain inpt LICENSING COORDINATOR status. Cont current care. 10/31 -- plan DC to hospice when hospice care is available. The PO morphine that was ordered for her was not concentrated, so I switched her to Roxanol. Symptoms adequately controlled. Continue comfort measures. 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 Family decided against home with hospice, per nursing. 10/31 -- plan now do DC to hospice 10/30 -- Family prefers patient to remain here rather than transfer to hospice. Patient is unresponsive, and I expect she may pass soon. 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 MRI confirmed large nonhemorrhagic CVA. Remains unresponsive. 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 Meeting with hospice planned for today with family to consider hospice house Add scopolamine patch (3) Metabolic encephalopathy Status: Acute Plan/VTE VTE Prophylaxis Ordered?: No (start Lovenox today if not LICENSING COORDINATOR. ) VTE Exclusion Mechanical Proph: Other (LICENSING COORDINATOR) Plan/Urinary Catheter Reason for insertion/continuin: Critical Pt monitoring Plan Family medicine attending note: Patient seen this morning - she appeared comfortable. I agree with Jose Nettles RPA-C note above. Patient this afternoon - see dictated discharge summary from today. (KES) VS, I&O, 24H, Fishbone Vital Signs/I&O Vital Signs Date Time Temp Pulse Resp B/P (MAP) Pulse Ox O2 Delivery O2 Flow Rate FiO2 11/03/16 09:10 18 11/03/16 08:33 Room Air 10/29/16 21:00 2.0 I&O- Last 24 Hours up to 6 AM 11/03/16 05:59 Intake Total 0 ml Output Total 150 ml Balance -150 ml Laboratory Data Microbiology Microbiology 10/25/16 Blood Culture - Final, Complete NO GROWTH AFTER 5 DAYS 10/25/16 Blood Culture - Final, Complete NO GROWTH AFTER 5 DAYS 10/25/16 Urine Culture - Final, Complete Jose Nettles RPA-C Nov 03, 2016 10:23 JUN العراقي MD Nov 03, 2016 17:22
--- NOTE | 2016-11-04 09:50 | DSES ---
DATE OF ADMISSION: 10/26/2016 DATE OF DISCHARGE/: 11/03/2016 PRIMARY CARE PHYSICIAN: Dr. Ramon Mayberry. ATTENDING PHYSICIAN: Dr. July Richmond. PRINCIPAL DIAGNOSIS: Cerebrovascular accident, nonhemorrhagic. SECONDARY DIAGNOSES: Metabolic encephalopathy. Hypertension. Hyperlipidemia. SUMMARY: This is an 86-year-old woman who presented to the emergency department with altered mental status, garbled speech, hypertension and was found to have a large nonhemorrhagic stroke on MRI. Patient's family elevated to pursue comfort oriented measures for patient. Hospice was consulted and saw patient in the hospital but family elected to keep patient in the hospital. Patient's symptoms were treated with morphine, Ativan and scopolamine as needed. She on 11/03/2016 at 2:28 p.m.
== END 2016-11-03 14:28 | disposition expired | DRG 64 ==
LOC: M ED 19:49 → M ED INP 10-26 00:09 → M ICU 10-26 01:56 → M MSPAV 10-26 18:06
PROVIDERS: ADMIT Family Medicine; ATTEND Family Medicine
DX: I63.9 Cerebral infarction, unspecified (principal); G93.40 Encephalopathy, unspecified; R06.3 Periodic breathing; I10 Essential (primary) hypertension; E78.5 Hyperlipidemia, unspecified; Z51.5 Encounter for palliative care; Z66 Do not resuscitate; Z88.8 Allergy status to other drugs, medicaments and biological substances; Z79.899 Other long term (current) drug therapy